=== PATIENT | female | born 1940 | race African-American/Black ===

== ENCOUNTER 2017-12-17 01:37 | Emergency (ER) | payer OTHER ==
[~2017-12-17] VITALS: Ht 165.1 cm; Wt 127.0 kg
[~2017-12-17 01:37] MED LIST: AMLODIPINE; ANAPROX; CENTRUM SILVER1 EAC1 PO; COUMADIN 5 MG TA5 M1 PO; CYMBALTA30 MG PO; DILANTIN100 MG PO; DIOVAN 80 MG TA80 M1 PO; DIOVAN320 MG PO; EYE; FUROSEMIDE; INDERAL LA60 MG PO; KLOR-CON 1010 MEQ PO; LASIX 40 MG TAB40 M2 PO; LIPITOR 20 MG T20 M1 PO; NORTRIPTYLINE H10 M2 PO; NORVASC10 MG PO; PHENOBARBITAL; PHENOBARBITAL97.2 M2 PO; PRILOSEC OTC20 MG PO; TRAVATAN 0.004%; ZOCOR
[2017-12-17] MEDS ORDERED: NORCO 5-325 TA1 EACH PO (02:39)
[2017-12-17 03:21] VITALS: BP 132/72
[2017-12-17] MEDS ORDERED: PATADAY2.5 ML (22:11)
[2017-12-17] MEDS ORDERED: XARELTO20 MG (22:14)
[2017-12-17] MEDS ORDERED: XARELTO20 MG PO (22:15)
[2017-12-18] MEDS ORDERED: PROBIOTIC1 EAC1 PO (03:27)
[2017-12-18] MEDS ORDERED: FIBERCON625 M1 PO (03:29)
[2017-12-18] MEDS ORDERED: PATADAY2.5 ML ×7 (03:57→04:36)
[2017-12-18] MEDS ORDERED: TRAVATAN Z5 ML (04:19)
[2017-12-18] MEDS ORDERED: VITAMIN D1000 UNI1 ×2 (04:22→04:23)
[2017-12-18] MEDS ORDERED: VITAMIN D1000 UNI1 PO ×2 (04:24→04:25)
[2017-12-18] MEDS ORDERED: TRAVATAN Z2.5 ML (04:28)
[2017-12-18] MEDS ORDERED: FIBERCON625 M1 (04:38)
== END 2017-12-17 03:22 | disposition home or self-care (01) ==
LOC: ER 01:37
DX: S52.302A Unspecified fracture of shaft of left radius, initial encounter for closed fracture (principal); S52.612A Displaced fracture of left ulna styloid process, initial encounter for closed fracture; I10 Essential (primary) hypertension; E78.00 Pure hypercholesterolemia, unspecified; R56.9 Unspecified convulsions; Z90.49 Acquired absence of other specified parts of digestive tract; Z88.6 Allergy status to analgesic agent; Z88.5 Allergy status to narcotic agent; W07.XXXA Fall from chair, initial encounter; Y93.89 Activity, other specified; Y92.098 Other place in other non-institutional residence as the place of occurrence of the external cause; Y99.8 Other external cause status

== ENCOUNTER 2017-12-17 19:28 | Inpatient (IN) | payer OTHER ==
[~2017-12-17] VITALS: Ht 165.1 cm; Wt 129.3 kg
--- NOTE | ~2017-12-17 | HC ---
[facility] [place] [address] CONSULTATION Name: MARINO GODWIN Room #: 431-P [facility] IN M.R.#: [id number] Admission: 12/17/17 Attend Phys: Michael Menjivar DO Discharge: 12/20/17 Date of : 42 Report #: [id number] THIS REPORT FOR: //name// CC: Michael Evans DATE OF SERVICE: 12/18/2017 REASON FOR CONSULTATION: Right hip fracture. HISTORY OF PRESENT ILLNESS: The patient is a 77-year-old female who has been ambulating with a walker for approximately a year due to prior history of falls when she fell as her walker got caught when she was trying to make sure her door was locked. It was a mechanical fall. She did hit her head, but denied loss of consciousness. This occurred on Friday. She was seen in the Emergency Department, diagnosed with a fracture distal radius, splint applied and she was discharged to home. She was then unable to care for herself and was brought back into the hospital by EMS. Her daughter is at her bedside. She lives alone. REVIEW OF SYSTEMS: NEUROLOGIC: Denies numbness or tingling. MUSCULOSKELETAL: Reports only right wrist pain. Denies any other extremity complaints. ALLERGIES: Include MORPHINE and MEPERIDINE. MEDICATIONS: The home medications were reviewed, which shows reported medications include Dilantin, omeprazole, atorvastatin, rivaroxaban, lactobacillus, cholecalciferol, travoprost, olopatadine, calcium, , potassium chloride, amlodipine, phenobarbital, furosemide, propranolol and valsartan. PAST MEDICAL HISTORY: Significant for PEs, history of seizure disorder, hypertension, hypercholesterolemia, history of DVTs. PAST SURGICAL HISTORY: Bilateral cataract, toe joint fusion, hernia repair, cholecystectomy, multiple knee surgeries. SOCIAL HISTORY: Her daughter is present at her bedside. The patient lives alone. She uses a walker to ambulate. Denies smoking. She apparently was a smoker, approximately 20 years ago. Denies alcohol use. PHYSICAL EXAMINATION: GENERAL: The patient is alert and oriented. She interacts appropriately. She [address] [address] CONSULTATION Name: MARINO GODWIN Room #: 431-P [facility] IN ..#: [id number] Admission: 12/17/17 Attend Phys: Michael Menjivar DO Discharge: 12/20/17 Date of : 42 Report #: [id number] is a well-developed, well-nourished female with normal affect who interacts appropriately. Her daughter is at her bedside. VITAL SIGNS: Most recent vital signs show temperature of 37, heart rate 75, respiratory rate 18, blood pressure 114/64, pulse oximetry is 96% on room air. LABORATORY STUDIES: Done on 12/17/2017 show white blood cell count 6.4, hemoglobin 12.9, hematocrit 38.3, platelet count 200. INR is 1.2. Chemistry done on 12/18/2017 is grossly normal. Examination of her right upper extremity: The skin is clean, dry and intact. She has a sugar tong splint in place. There is a moderate amount of edema to her digits. She reports sensation is intact to light touch throughout. She is able to flex and extend. Her digits extend the thumb, IP joint, abduct and adduct the digit. There is no tenderness in her hand. There is significant amount of tenderness at the ulnar styloid and distal radius. The motion is not assessed. The elbow is nontender. There is no tenderness to the arm or humerus. All compartments are soft. There is no tenderness to the bilateral sternum and clavicles, no tenderness to the left upper extremity including the shoulder, arm, elbow, forearm, wrist, and hand. There is no pain with range of motion of the left shoulder, elbow, forearm, wrist, and hand. There is no pain with range of motion of the right elbow and shoulder. Bilateral lower extremity exam, sensation is intact to light touch throughout. She has brisk capillary refill. EHL, FHL, dorsiflexion and plantar flexion are intact. She has no pain with range of motion of bilateral hips, knees, ankles or feet. No tenderness to palpation throughout the bilateral lower extremities. RADIOGRAPHS: AP, lateral and oblique of the right wrist taken on 12/17/2017 shows well-aligned intraarticular distal radius fracture with approximately 15 degrees of dorsal tilt and essentially nondisplaced articular fracture. There is an ulnar styloid base fracture with concurrently reduced distal radioulnar joint as noted on the lateral view. IMPRESSION AND PLAN: 1. Right distal radius fracture with ulnar styloid fracture in appropriate alignment in this 77-year-old right hand dominant female. I discussed the diagnosis as well as treatment options. I discussed that it is not uncommon for the ulnar side of the wrist to be more painful be painful for a longer time than the radial side even if there is minimal obvious bony injury. She is currently in a sugar tong splint. This could be switched to one that this is more foam fitting. If she has difficulty tolerating this one, I encouraged her to work on range of motion and retrograde massage to the digits in order to decrease swelling. I encouraged her that most likely that she does have the potential to heal well without any surgical treatment, but close radiographic monitor is required. I would like to see her in my office next Dl. We will most likely take an x-ray in the splint and then hopefully transition her into a [facility] [address] [place] [address] CONSULTATION Name: MARINO GODWNI Room #: 431-P [facility].#: [id number] Admission: 12/17/17 Attend Phys: Michael Menjivar DO Discharge: 12/20/17 Date of : 42 Report #: [id number] cast. We discussed that wrist fractures take approximately 6 weeks to heal, but approximately 10 weeks until she can fully weightbear. I do agree with her an evaluation from social work to evaluate her needs for ADLs. We also discussed wrist fractures can take essentially 5 months to fully recover from that. She might have some stiffness and swelling that persists. We discussed that with this alignment, she may have some dorsal prominence, but most likely she will not have any residual problems. Questions were encouraged and answered to the best of my ability. Her daughter was present at her bedside and was able to ask questions as well. I will see her in my office on next Friday. Please call myself or one of my [employer] partners who is furniture salesperson this weekend if there are any issues. <ELECTRONICALLY SIGNED> By: Brenda Gracia MD 01/08/18 1526 [id number] Brenda Gracia MD /nt
[~2017-12-17 19:28] MED LIST changes: +NORCO 5-325 TA1 EACH PO
[2017-12-17 19:30] VITALS: BP 131/70
[2017-12-17 20:23] LABS: HEMATOCRIT 38.3 % (37.0-47.0); HEMOGLOBIN 12.9 gm/dL (12.0-15.0); MCH 30.3 pg (26.0-34.0); MCHC 33.6 g/dL (28.0-37.0); MCV 90.1 fL (80.0-100.0); RBC 4.26 mil/uL (4.20-5.00); WBC 6.4 thou/uL (4.0-11.0)
[2017-12-17 20:33] LABS: CALCIUM 9.4 mg/dL (8.5-10.1); CREATININE 0.7 mg/dL (0.6-1.0); POTASSIUM 3.7 mmol/L (3.5-5.1)
[2017-12-17 20:36] LABS: INR 1.2; PROTIME 12.3 Seconds (9.3-11.4)
[2017-12-17 20:58] VITALS: BP 131/70
[2017-12-17 21:20] VITALS: BP 131/70
[2017-12-17] MEDS ORDERED: PATADAY2.5 ML (22:11)
[2017-12-17] MEDS ORDERED: XARELTO20 MG (22:14)
[2017-12-17] MEDS ORDERED: XARELTO20 MG PO (22:15)
[2017-12-18] MEDS ORDERED: PROBIOTIC1 EAC1 PO (03:27)
[2017-12-18] MEDS ORDERED: FIBERCON625 M1 PO (03:29)
[2017-12-18] MEDS ORDERED: PATADAY2.5 ML ×7 (03:57→04:36)
[2017-12-18 04:13] VITALS: BP 121/73
[2017-12-18] MEDS ORDERED: TRAVATAN Z5 ML (04:19)
[2017-12-18] MEDS ORDERED: VITAMIN D1000 UNI1 ×2 (04:22→04:23)
[2017-12-18] MEDS ORDERED: VITAMIN D1000 UNI1 PO ×2 (04:24→04:25)
[2017-12-18] MEDS ORDERED: TRAVATAN Z2.5 ML (04:28)
[2017-12-18] MEDS ORDERED: FIBERCON625 M1 (04:38)
[2017-12-18 08:27] LABS: CALCIUM 8.6 mg/dL (8.5-10.1); CREATININE 0.6 mg/dL (0.6-1.0); POTASSIUM 3.9 mmol/L (3.5-5.1)
[2017-12-18 08:30] VITALS: BP 109/60
[2017-12-18 14:25] VITALS: BP 114/64
[2017-12-18 20:00] VITALS: BP 119/71
[2017-12-19 04:39] VITALS: BP 119/65
[2017-12-19 04:40] VITALS: BP 126/60
[2017-12-19 07:26] VITALS: BP 126/72
[2017-12-19 15:45] VITALS: BP 122/67
[2017-12-19 19:15] VITALS: BP 110/65
[2017-12-20 03:44] VITALS: BP 120/69
[2017-12-20 06:27] LABS: HEMATOCRIT 35.2 % (37.0-47.0); HEMOGLOBIN 11.7 gm/dL (12.0-15.0); MCH 30.1 pg (26.0-34.0); MCHC 33.1 g/dL (28.0-37.0); PLATELET COUNT 199 thou/uL (150-400); RBC 3.87 mil/uL (4.20-5.00); RDW 14.3 % (10.5-14.5); WBC 4.4 thou/uL (4.0-11.0)
[2017-12-20 06:39] LABS: CALCIUM 8.9 mg/dL (8.5-10.1); CREATININE 0.6 mg/dL (0.6-1.0); POTASSIUM 3.8 mmol/L (3.5-5.1)
[2017-12-20 08:13] VITALS: BP 135/79
[2017-12-20 08:38] LABS: ABSOLUTE NEUTROPHILS 2.9 thou/uL (1.4-8.2); ATYPICAL LYMPHS 1 %; METAMYELOCYTES 2 %
[2017-12-20 08:39] LABS: ANISOCYTOSIS SLIGHT
== END 2017-12-20 14:00 | DRG 563 ==
LOC: ER 19:28 → EROBS 20:32 → 4E 20:32
PROVIDERS: Family Medicine; Nurse Practitioner Acute Care; Physician Assistant
DX: S62.101A Fracture of unspecified carpal bone, right wrist, initial encounter for closed fracture (principal); Z68.42 Body mass index [BMI] 45.0-49.9, adult; S52.501A Unspecified fracture of the lower end of right radius, initial encounter for closed fracture; I10 Essential (primary) hypertension; E78.00 Pure hypercholesterolemia, unspecified; G40.909 Epilepsy, unspecified, not intractable, without status epilepticus; E66.9 Obesity, unspecified; W18.39XA Other fall on same level, initial encounter; Y93.89 Activity, other specified; Z98.42 Cataract extraction status, left eye; Z98.41 Cataract extraction status, right eye; Z98.1 Arthrodesis status; Z86.711 Personal history of pulmonary embolism; Z90.49 Acquired absence of other specified parts of digestive tract; Z88.5 Allergy status to narcotic agent; Z88.8 Allergy status to other drugs, medicaments and biological substances; Y92.89 Other specified places as the place of occurrence of the external cause; Y99.8 Other external cause status; Z86.718 Personal history of other venous thrombosis and embolism; Z87.891 Personal history of nicotine dependence; Z79.01 Long term (current) use of anticoagulants
CPT/HCPCS: 10084

== ENCOUNTER 2019-03-10 13:54 | Inpatient (IN) | payer OTHER ==
[~2019-03-10] VITALS: Ht 165.1 cm; Wt 143.8 kg
--- NOTE | ~2019-03-10 | HC ---
[facility] [place] [address] CONSULTATION Name: MARINO GODWIN Room #: 427-P ADM IN M.R.#: [id number] Admission: 03/10/19 ������������������ Attend Phys: Rebekah Mandel Discharge: ������������������ Date of : 42 Report #: [id number] THIS REPORT FOR: //name// CC: Rebekah Osorio [facility] DATE OF SERVICE: 03/10/2019 REASON FOR CONSULTATION: Right ankle fracture. HISTORY OF PRESENT ILLNESS: The patient is a 78-year-old female who lives in independent living at a [facility] who fell this morning. She was brought to the Emergency Room, found to have a distal tibia-fibula fracture with significant displacement and comminution. She is being admitted for definitive treatment. PAST MEDICAL HISTORY: Significant for pulmonary embolus for which she is on Xarelto, seizure disorder, fluid retention, hypertension, hypercholesterolemia. PAST SURGICAL HISTORY: Bilateral cataracts, right great toe joint fusion, bilateral knee replacement, right wrist fracture, right humerus fracture, left shoulder surgery. SOCIAL HISTORY: She lives alone in an independent living apartment. MEDICATIONS: Have been reviewed and are on the chart. ALLERGIES: INCLUDE MORPHINE, MEPERIDINE. PHYSICAL EXAMINATION: GENERAL: This is an obese female in no acute distress. She is alert and oriented, pleasant, cooperative. EXTREMITIES: Examination of the right lower extremity shows her to have varus deformity of the ankle with intact skin. NEUROLOGIC: She is neurologically intact. She can wiggle her toes. She has brisk capillary refill. IMAGING: X-ray examination three-view of the right ankle shows her to have an extraarticular comminuted distal tibia fracture with 2-part distal fibular fracture. DIAGNOSIS AND PLAN: Treatment options were discussed with she and her daughter today. I am recommending ORIF of her distal tibia and fibula. She last took her Xarelto yesterday, so I think it will be safe to perform her surgery tomorrow morning at 7:30 a.m. We will use a tourniquet for this and then we will plan to start her Xarelto the following evening. She will be n.p.o. after [facility] [address] [place] [address] CONSULTATION Name: MARINO GODWIN Ele Room #: 427-P [facility] [place] [facility].#: [id number] Admission: 03/10/19 ������������������ Attend Phys: Rebekah Mandel Discharge: ������������������ Date of : 42 Report #: [id number] midnight. We discussed with very real possibility of nonweightbearing on the right lower extremity for at least 3 months postoperatively. Thank you for allowing us to participate in the care of the patient. ��������������������������������������������� ���������������������������������������� By: ��������������������������������������������� 1707 [id number] Berhane Danielson MD /nt
--- NOTE | ~2019-03-10 | O ---
[facility] [place] [address] OPERATIVE REPORT Name: MARINO GODWIN Room #: 427-P [facility] IN M.R.#: [id number] Admission: 03/10/19 ������������������ Attend Phys: Rebekah Mandel Discharge: ������������������ Date of : 42 Report #: [id number] THIS REPORT FOR: //name// [facility] DATE OF SERVICE: 03/11/2019 PREOPERATIVE DIAGNOSIS: Right distal third tibia-fibula fracture. POSTOPERATIVE DIAGNOSIS: Right distal third tibia-fibula fracture. PROCEDURE: ORIF right distal third tibia-fibula fracture. SURGEON: Berhane Danielson MD. CAFETERIA WORKER: Grisel Martinez PA-C. ANESTHESIA: General endotracheal. INDICATION FOR CAFETERIA WORKER: Throughout the case, extensive retraction and manipulation of the ankle were required. This was afforded to me by my staffing assistant. TOURNIQUET TIME: 71 minutes. ESTIMATED BLOOD LOSS: 25 mL. IMPLANTS: Synthes medial and distal tibial locking plate and a lateral fibular distal locking plate with multiple cortical and locking screws. CONDITION UPON LEAVING THE OPERATING ROOM: Stable. INDICATIONS FOR PROCEDURE: The patient is a 78-year-old female who had a same level fall at home and sustained a right distal third tib-fib fracture. This had significant comminution and instability and after discussion with she and her daughter, they elected for ORIF. DESCRIPTION OF PROCEDURE: Risks, benefits, alternatives, complications were discussed in detail with the patient. The patient's family including but not limited to risk of anesthesia, risk of damage to nerves, arteries, blood vessels, risk for infection, bleeding, risk for malunion, nonunion, need for reoperation. Informed consent was obtained from the patient. The right leg was appropriately marked in the preoperative holding area. IV Ancef was given for preoperative antibiotics. She was brought to the operating room and placed in supine position on operating room table. General endotracheal anesthesia was [facility] [address] [place] [address] OPERATIVE REPORT Name: MARINO GODWIN Room #: 427-P [facility] IN ..#: [id number] Admission: 03/10/19 ������������������ Attend Phys: Rebekah Mandel Discharge: ������������������ Date of : 42 Report #: [id number] induced without complication. Tourniquet was placed on the right thigh. Right lower extremity was prepped and draped in normal sterile fashion. Timeout was performed properly identifying the patient and procedure as well as the instrumentation and implants. All in the operating room were in agreement. Right lower extremity was exsanguinated, tourniquet was inflated. Tourniquet time was 71 minutes. We decided to fix the fibula first to restore length and alignment and a lateral incision centered over the fibula was made with a 15 blade through the skin. Dissection was taken down sharply to the fibula and the fibula was dissected anteriorly and posteriorly. The fibula demonstrated a segmental fracture and a long distal fibular locking plate was placed on the lateral aspect of the fibula. Fluoroscopic imaging was brought in to verify adequate length and placement of the hardware. Three distal locking screws were placed. One proximal cortical screw and 2 proximal locking screws were placed to reduce the plate to the bone initially and then 2 locking plates placed. Fluoroscopic imaging was brought in to verify adequate placement of hardware of the fibula as well as length and reduction. After acceptance of this, we turned our attention to the distal third tibia fracture. A longitudinal incision over the medal malleolus was made with a 15 blade through the skin. Dissection was taken down sharply to the medial malleolus, and this was dissected anteriorly and posteriorly. We decided to slide a plate along the bone superiorly in order to preserve soft tissues and decreased risk with complication. Fluoroscopic imaging was brought in to verify adequate placement of the plate, and 2 distal locking screws were placed for initial plate fixation. We then placed proximal screws percutaneously initially with a cortical screw to reduce the bone to the plate, and this was performed in the second most proximal screw hole. This reduced the fracture well under AP and lateral images. Three additional locking screws were placed proximally, 2 additional locking screws were placed distally. After this, final fluoroscopic images were taken to verify adequate fracture reduction and placement of hardware. Intraoperative external rotation stress was performed and found to have a stable syndesmosis. The wounds were thoroughly irrigated with normal saline. Deep tissues were closed with 0 Vicryl, skin was closed with 2-0 Vicryl, 3-0 nylon. Soft dressing was applied and a Cam boot was applied. The patient tolerated this procedure well and went to recovery room under care of Anesthesia postoperatively. ��������������������������������������������� ���������������������������������������� By: ��������������������������������������������� [id number] Berhane Danielson MD /juanjose
[~2019-03-10 13:54] MED LIST changes: +FIBERCON625 M1; +FIBERCON625 M1 PO; +PATADAY2.5 ML; +PROBIOTIC1 EAC1 PO; +TRAVATAN Z2.5 ML; +TRAVATAN Z5 ML; +VITAMIN D1000 UNI1; +VITAMIN D1000 UNI1 PO; +XARELTO20 MG; +XARELTO20 MG PO
[2019-03-10 13:55] VITALS: BP 163/67
[2019-03-10 14:19] LABS: HEMATOCRIT 39.2 % (37.0-47.0); HEMOGLOBIN 13.3 gm/dL (12.0-15.0); MCH 30.3 pg (26.0-34.0); MCHC 33.9 g/dL (28.0-37.0); MCV 89.4 fL (80.0-100.0); RBC 4.38 mil/uL (4.20-5.00); RDW 14.2 % (10.5-14.5); WBC 3.9 thou/uL (4.0-11.0)
[2019-03-10 14:28] LABS: CALCIUM 9.4 mg/dL (8.5-10.1); CREATININE 0.7 mg/dL (0.6-1.0); POTASSIUM 4.2 mmol/L (3.5-5.1)
[2019-03-10 14:33] LABS: APTT 29.2 Seconds (24.5-32.8); INR 1.1
[2019-03-10 17:44] VITALS: BP 112/64
--- NOTE | 2019-03-10 18:00 | NUR ---
ATTEMPTED TO CALL REPORT AT 175; PLACED ON HOLD BY MANNY (SP?); UNABLE TO HOLD ANY LONGER OF 1800
[2019-03-10 18:39] VITALS: BP 135/69
[2019-03-10 20:35] VITALS: BP 145/68
--- NOTE | 2019-03-11 02:09 | NUR ---
PT ARRIVED TO UNIT AT AROUND 1900 HRS.PT ALERT AND ORIENTED. ACCOMPANIED BY DTR. PT HAD A PARTIAL REDUCTION OF THE R ANKLE AND A SPLINT PLACED.PT HAS A ZABALA TO D/D .PT WITH LOW GRADE FEVER-TYLENOL GIVEN. PT GETTING NORCO FOR PAIN.NPO AFTER MIDNOC, POSSIBLY SURGERY TOMORROW.
--- NOTE | 2019-03-11 07:45 | NUR ---
PT DOWN TO PREOP AT 0630 TO ANKLE ORIF.
[2019-03-11 11:17] VITALS: BP 123/58
--- NOTE | 2019-03-11 11:42 | NUR ---
PT RECEIVED AT 1100 FROM REC RM ALERT AND C/O RT ANLKE PAIN. DILAUDID 1MG GIVEN IV FOR PAIN. DAUGHTER AT BEDSIDE. RT ANKLE DSNG INTACT W/ ORTHO BOOT AND ICE PACK. XARELTO TO RESUME TOMORROW PER DR. GREER. SEIZURE MEDS AND ANTIBIOTIC GIVEN IN HOLDING.
[2019-03-11 11:58] VITALS: BP 108/66
[2019-03-11 13:05] VITALS: BP 126/60
--- NOTE | 2019-03-11 13:06 | NUR ---
ASSESSMENT-PT LIVES IN AN INDEPENDENT APT CALLED . PRIOR PT WAS USING A CANE OR WALKER TO GET AROUND. SHE HAS 3 WALKERS AT HOME. DTR MARICARMEN CHECKS ON HER DAILY AND LIVES 15 MIN AWAY. PT HAS A SON IN [place]. PT HAS A PULL CORD FOR EMERGENCIES. SHE WAS DOING HER OWN COOKING, CLEANING AND LAUNDRY PRIOR. PT HAS HAD HH SERVICES IN THE PAST BUT CANNOT REMEMBER THE NAME OF [facility]. PT HAS A STEP STOOL TO STEP ON TO GET IN HER BED. DTR SAYS PT WAS TOLD SHE WILL BE NON-WT BEARING FOR 3 MONTHS. PT HAS BEEN TO [facility] AND [facility] IN THE PAST AND ONE OTHER SNF AND SAYS THEY ALWAYS MESS UP MY MEDICATIONS. GAVE SKILLED LIST TO DTR AND SHE WILL GO TOUR FACILITIES CLOSE TO HER HOME. PT HAS A WLK-IN SHOWER WITH SHOWER CHAIR AND GR[employer] BARS. FOLLOWING TO ASSIST WITH DC PLANNING.
[2019-03-11 15:23] VITALS: BP 121/67
--- NOTE | 2019-03-11 18:00 | NUR ---
PT RETURNED FROM SURGERY AT 1105 ALERT AND C/O RT ANKLE PAIN. IV DILAUDID GIVEN W/ RELIEF. C/O HEADACHE AND TYLENOL GIVEN WHICH HELPED. PT W/ RT LE ORTHO BRACE W/ ICE PACK. REPOSITIONED Q2HRS.
[2019-03-11 19:57] VITALS: BP 125/54
--- NOTE | 2019-03-12 03:56 | NUR ---
S/P R ANKLE ORIF. ORTHO BOOT ON. LEG ELEVATED ON PILLOW. PERCOCET GIVEN X 1 SO FAR. PT BEEN RESTING QUIETLY.
[2019-03-12 05:44] VITALS: BP 142/66
[2019-03-12 06:04] LABS: HEMATOCRIT 33.2 % (37.0-47.0); HEMOGLOBIN 11.4 gm/dL (12.0-15.0); MCH 30.5 pg (26.0-34.0); MCHC 34.2 g/dL (28.0-37.0); MCV 89.2 fL (80.0-100.0); RBC 3.72 mil/uL (4.20-5.00); RDW 13.8 % (10.5-14.5); WBC 7.5 thou/uL (4.0-11.0)
[2019-03-12 08:19] VITALS: BP 142/66
--- NOTE | 2019-03-12 10:32 | NUR ---
Assessment completed.vss.Assisted pt with tray setup.Pt fed self and am meds given as ordered and well tolerated.Scd's pump replaced when pt said it's not working.She also c/o missing bp med.Dr Mandel notified and order noted.Pain med given prior to therapy.Pt refused transfer to senior suites and Dr Mandel said pt should remin on the the unit till dc home.Dtr at bs visiting at present.Will continue to monitor.
--- NOTE | 2019-03-12 13:36 | NUR ---
FAXED REFERRAL TO [facility] SPOKE WITH ZANDRA IN ADM SHE RECEIVED REFERRAL AND CAN ACCEPT PT. AT DISCHARGE. ANTICIPATE DC TOMORROW.DCP TO FOLLOW.
[2019-03-12 17:30] VITALS: BP 131/85
[2019-03-12 19:39] VITALS: BP 130/54
--- NOTE | 2019-03-13 03:35 | NUR ---
PT FELL BAG SEWER. S/P R ANKLE ORIF ON 03/11. PT NWB TO R FOOT? PT HAD A FEVER OF 103 AT HS.BLOOD CULTURES AND UA COLLECTED PER ORDERS. ORTHO BOOT TO R FOOT. PERCOCET GIVEN FOR PAIN,NO FURTHER CONCERNS. PLAN TO D/C TO [facility] TOMOMORROW.
[2019-03-13 04:23] VITALS: BP 112/57
[2019-03-13 05:20] LABS: URINE BILIRUBIN NEGATIVE (Negative); URINE BLOOD 2+ (Negative); URINE CLARITY CLEAR; URINE COLOR YELLOW; URINE GLUCOSE-RANDOM* NEGATIVE (Negative); URINE KETONES NEGATIVE (Negative); URINE LEUKOCYTES NEGATIVE (Negative); URINE NITRITE NEGATIVE (Negative); URINE PROTEIN (DIPSTICK) 1+ (Negative); URINE UROBILINOGEN 0.2 E.U./dl (0.2-1.0)
[2019-03-13 05:46] LABS: BACTERIA 1-9 Few /HPF (None Seen); CASTS None Seen /LPF (None Seen); CRYSTALS None Seen /LPF (None Seen); MUCUS 0-3 Light strn/LPF (None Seen); SQUAMOUS 0-3 Few /LPF (0-3); URINE RBC 3-10 Few /HPF (0-2); URINE WBC 0-5 Rare /HPF (0-5)
[2019-03-13 08:24] VITALS: BP 119/65
[2019-03-13] MEDS ORDERED: HYDROCODON-ACE1 EAC7 PO (09:39)
--- NOTE | 2019-03-13 11:22 | NUR ---
RECEIVED PT APPROX 0716. A/O. PAIN MANAGED BY MEDS ORDERED. NO NOTED SOA. NO NV. PORTHO BOOT ON RIGHT FOOT. BATH GIVEN BY SUPPORT TEAM MEMBER. MEDS GIVEN THIS AM. WILL CONT. TO MONITOR.
== END 2019-03-13 14:17 | DRG 493 ==
LOC: ER 13:54 → EROBS 16:44 → 4E 16:44
PROVIDERS: Emergency Medicine; Nurse Practitioner Acute Care; ADMIT Hospitalist
DX: S82.251A Displaced comminuted fracture of shaft of right tibia, initial encounter for closed fracture (principal); Z68.43 Body mass index [BMI] 50.0-59.9, adult; S82.451A Displaced comminuted fracture of shaft of right fibula, initial encounter for closed fracture; S82.831A Other fracture of upper and lower end of right fibula, initial encounter for closed fracture; E66.9 Obesity, unspecified; J44.9 Chronic obstructive pulmonary disease, unspecified; Z96.653 Presence of artificial knee joint, bilateral; W18.39XA Other fall on same level, initial encounter; E78.5 Hyperlipidemia, unspecified; I10 Essential (primary) hypertension; E78.00 Pure hypercholesterolemia, unspecified; Z98.42 Cataract extraction status, left eye; Z98.41 Cataract extraction status, right eye; Z90.49 Acquired absence of other specified parts of digestive tract; Z86.718 Personal history of other venous thrombosis and embolism; Z88.6 Allergy status to analgesic agent; Z86.711 Personal history of pulmonary embolism; Z88.8 Allergy status to other drugs, medicaments and biological substances; Z87.891 Personal history of nicotine dependence; Y93.89 Activity, other specified; Y92.098 Other place in other non-institutional residence as the place of occurrence of the external cause; Y99.8 Other external cause status
CPT/HCPCS: 10084; 50010; 50101; 50341; 50386; 50938; 55430; 56527; 56528; 56667; 57091; 57103; 62110; 62900; 70005

== ENCOUNTER 2021-04-06 09:48 | Emergency (ER) | payer OTHER ==
[~2021-04-06] VITALS: Ht 165.1 cm; Wt 127.0 kg
[~2021-04-06 09:48] MED LIST changes: +HYDROCODON-ACE1 EAC7 PO
[2021-04-06] MEDS ORDERED: NORCO7.5 PO (11:35)
[2021-04-06 11:59] VITALS: BP 159/79
== END 2021-04-06 12:03 | disposition home or self-care (01) ==
LOC: ER 09:48
DX: S92.342A Displaced fracture of fourth metatarsal bone, left foot, initial encounter for closed fracture (principal); S93.491A Sprain of other ligament of right ankle, initial encounter; M79.605 Pain in left leg; I10 Essential (primary) hypertension; E78.00 Pure hypercholesterolemia, unspecified; Z87.891 Personal history of nicotine dependence; Z88.5 Allergy status to narcotic agent; Z79.899 Other long term (current) drug therapy; Z86.711 Personal history of pulmonary embolism; Z86.718 Personal history of other venous thrombosis and embolism; Z98.890 Other specified postprocedural states; W18.30XA Fall on same level, unspecified, initial encounter; Y93.89 Activity, other specified; Y92.89 Other specified places as the place of occurrence of the external cause; Y99.9 Unspecified external cause status

== ENCOUNTER 2021-08-07 14:48 | Emergency (ER) | payer OTHER ==
[~2021-08-07] VITALS: Ht 165.1 cm; Wt 127.0 kg
[~2021-08-07 14:48] MED LIST changes: +NORCO7.5 PO
[2021-08-07 14:49] VITALS: BP 166/79
[2021-08-07] MEDS ORDERED: PERCOCET 5-3251 EACH PO (17:11)
== END 2021-08-07 17:26 | disposition home or self-care (01) ==
LOC: ER 14:48
DX: S90.31XA Contusion of right foot, initial encounter (principal); I10 Essential (primary) hypertension; E78.00 Pure hypercholesterolemia, unspecified; Z90.49 Acquired absence of other specified parts of digestive tract; Z79.899 Other long term (current) drug therapy; Z87.891 Personal history of nicotine dependence; Z88.5 Allergy status to narcotic agent; Z88.1 Allergy status to other antibiotic agents; W18.39XA Other fall on same level, initial encounter; Y93.89 Activity, other specified; Y92.89 Other specified places as the place of occurrence of the external cause; Y99.8 Other external cause status